=== PATIENT | female | born 1945 | race Caucasian/White ===

== ENCOUNTER 2023-07-11 12:02 | Emergency (ER) | payer MEDICARE, MEDICAID ==
[~2023-07-11] VITALS: Ht 170.2 cm; Wt 59.1 kg
[2023-07-11 12:05] VITALS: BP 124/74; PULSE 77; TEMP 97.3; O2SAT 96
[2023-07-11 12:41] VITALS: RESP 18
[2023-07-11 13:02] LABS: BASOPHILS % (AUTO) 0.5 % (0-1); EOSINOPHILS % (AUTO) 0.4 % (0-6); HEMOGLOBIN 15.4 g/dl (12.0-16.0); LYMPHOCYTES # (AUTO) 1.1 X10'3 (1.1-4.8); LYMPHOCYTES % (AUTO) 12.3 % (21-51); MEAN CORPUSCULAR HEMOGLOBIN 33.3 PG (27.0-31.0); MEAN CORPUSCULAR HGB CONC 33.6 g/dL (33.0-36.5); MEAN CORPUSCULAR VOLUME 99.1 FL (78-98); MEAN PLATELET VOLUME 7.8 FL (7.4-10.4); MONOCYTES # (AUTO) 0.5 X10'3 (0-0.9); MONOCYTES % (AUTO) 5.8 % (2-12); PLATELET COUNT 292 X10'3 (140-440); RED BLOOD COUNT 4.64 X10'6 (4.20-5.60); RED CELL DISTRIBUTION WIDTH 13.6 % (11.5-14.5); WHITE BLOOD COUNT 8.6 X10'3 (4.5-11.0)
[2023-07-11 13:10] LABS: ALANINE AMINOTRANSFERASE 35 U/L (12-78); ALBUMIN 3.4 G/DL (3.4-5.0); ALBUMIN/GLOBULIN RATIO 0.9 (1.1-1.5); ALKALINE PHOSPHATASE 68 IU/L (46-116); ANION GAP 9 (8-16); ASPARTATE AMINO TRANSFERASE 23 U/L (10-37); BILIRUBIN,TOTAL 0.4 MG/DL (0.1-1.0); BLOOD UREA NITROGEN 33 MG/DL (7-18); BUN/CREATININE RATIO 29.2 (10.0-20.0); CALCIUM 9.6 MG/DL (8.5-10.1); CHLORIDE 106 MMOL/L (99-107); CREATININE 1.13 MG/DL (0.40-0.90); GLUCOSE 111 MG/DL (70-104); POTASSIUM 4.4 MMOL/L (3.5-5.1); SODIUM 141 MMOL/L (135-145); TOTAL CARBON DIOXIDE 25.6 MMOL/L (24-32); TOTAL PROTEIN 7.2 G/DL (6.4-8.2); eCRCL 39 ML/MIN; eGFR 47 ML/MIN
[2023-07-11] MEDS ORDERED: acetaminophen 325mg tablet PO ONE ×2 (13:20→13:50)
[2023-07-11 13:21] LABS: MAGNESIUM 2.2 MG/DL (1.5-2.4); PRO BRAIN NATRIURETIC PEPTIDE 1799 PG/ML (0-450)
[2023-07-11] MEDS ORDERED: CefTRIAXone 2gm/D5W 50ml BAG 50 ML IV SCH (14:45)
[2023-07-11] MEDS ORDERED: ONDA4TAB12 PO (15:32)
[2023-07-11] MEDS ORDERED: SPIR25TA5 PO (15:32)
[2023-07-11] MEDS ORDERED: MIRA50TA PO (15:32)
[2023-07-11] MEDS ORDERED: LEVE500T PO (15:32)
[2023-07-11] MEDS ORDERED: LOSA100T58 PO (15:32)
[2023-07-11] MEDS ORDERED: FAMO20TA8 PO (15:32)
[2023-07-11] MEDS ORDERED: METF-436 (15:32)
[2023-07-11] MEDS ORDERED: METF-1203 PO (15:32)
[2023-07-11] MEDS ORDERED: SUCR1TAB PO (15:32)
[2023-07-11] MEDS ORDERED: ATOR-2 PO (15:32)
[2023-07-11] MEDS ORDERED: LABE200T8 PO (15:32)
[2023-07-11] MEDS ORDERED: TRAM50TA2 PO (15:32)
[2023-07-11] MEDS ORDERED: EZET10TA48 PO (15:32)
[2023-07-11] MEDS ORDERED: DOCU-391 PO (15:32)
[2023-07-11] MEDS ORDERED: NIFE90TA61 PO (15:32)
[2023-07-11] MEDS ORDERED: CLON1PAT15 TOP (15:32)
[2023-07-11] MEDS ORDERED: APIX5TAB3 PO (15:32)
[2023-07-11 15:33] LABS: BILIRUBIN,URINE NEGATIVE (Neg); CLARITY,URINE SLIGHTLY CLOUDY (Clear); COLOR,URINE YELLOW (Yellow); GLUCOSE, URINE NEGATIVE (Neg); KETONES,URINE NEGATIVE (Neg); LEUKOCYTE ESTERASE ,URINE NEGATIVE (Neg); NITRITES, URINE NEGATIVE (Neg); OCCULT BLOOD,URINE NEGATIVE (Neg); PH,URINE 5.5 (4.8-8.0); PROTEIN,URINE 100 mg/dl (Neg); UROBILINOGEN,URINE 0.2 E.U/dL (0.2-1.0)
[2023-07-11] MEDS ORDERED: METF-436 PO (15:34)
[2023-07-11 15:37] LABS: UA COLLECTION TYPE STRAIGHT CATH
[2023-07-11 15:41] LABS: MUCUS STRANDS FEW /LPF (Neg); SQUAMOUS EPITHELIAL CELL,UR FEW /LPF (FEW)
[2023-07-11 15:42] LABS: BACTERIA,URINE 4+ /HPF (Neg); RBC,URINE 0-2 /HPF (0-2); WBC,URINE 0-4 /HPF (0-4)
[2023-07-11] MEDS ORDERED: CefTRIAXone/D5W-Rocephin 1gm 50 ML IV ONE (15:55)
[2023-07-12] MEDS ORDERED: LIDO700A32 TOP (15:09)
[2023-07-12] MEDS ORDERED: CYCL-1 PO (15:09)
[2023-07-12] MEDS ORDERED: HYDR-3965 PO (15:09)
== END 2023-07-11 17:23 | disposition left against medical advice (07) ==
LOC: ER 12:03
DX: I11.0 Hypertensive heart disease with heart failure (principal); I50.9 Heart failure, unspecified; M54.50 Low back pain, unspecified; E87.20 Acidosis, unspecified; G89.29 Other chronic pain; E78.00 Pure hypercholesterolemia, unspecified; E11.9 Type 2 diabetes mellitus without complications; F17.200 Nicotine dependence, unspecified, uncomplicated; Z86.73 Personal history of transient ischemic attack (TIA), and cerebral infarction without residual deficits; Z79.899 Other long term (current) drug therapy; Z88.8 Allergy status to other drugs, medicaments and biological substances
CPT/HCPCS: 36415; 71045; 80053; 81001; 83605; 83735; 83880; 84145; 84484; 85025; 87040; 87088; 93005; 96365; 99285; J0696; C1758

== ENCOUNTER 2023-07-12 12:40 | Emergency (ER) | payer MEDICARE, MEDICAID ==
[~2023-07-12] VITALS: Ht 172.7 cm; Wt 63.6 kg
[~2023-07-12 12:40] MED LIST: APIX5TAB3 PO; ATOR-2 PO; CLON1PAT15 TOP; DOCU-391 PO; EZET10TA48 PO; FAMO20TA8 PO; LABE200T8 PO; LEVE500T PO; LOSA100T58 PO; METF-1203 PO; METF-436; METF-436 PO; MIRA50TA PO; NIFE90TA61 PO; ONDA4TAB12 PO; SPIR25TA5 PO; SUCR1TAB PO; TRAM50TA2 PO
[2023-07-12] MEDS ORDERED: dexamethasone sod phosphate 10mg/ml inj IM STA (13:03)
[2023-07-12] MEDS ORDERED: cyclobenzaprine 10mg tablet PO ONE (13:05)
[2023-07-12] MEDS ORDERED: HYDROcodone/acetaminophen 5mg/325mg tablet PO ONE (13:05)
[2023-07-12] MEDS ORDERED: LIDOcaine 5% patch TP SCH (13:05)
[2023-07-12] MEDS ORDERED: HYDR-3965 PO (15:09)
[2023-07-12] MEDS ORDERED: CYCL-1 PO (15:09)
[2023-07-12] MEDS ORDERED: LIDO700A32 TOP (15:09)
[2023-07-12 17:04] VITALS: BP 139/99; PULSE 87; RESP 16; TEMP 98.7; O2SAT 95
== END 2023-07-12 17:07 | disposition home or self-care (01) ==
LOC: ER 12:41
DX: M54.9 Dorsalgia, unspecified (principal); G89.29 Other chronic pain; E78.00 Pure hypercholesterolemia, unspecified; I10 Essential (primary) hypertension; E11.9 Type 2 diabetes mellitus without complications; Z86.73 Personal history of transient ischemic attack (TIA), and cerebral infarction without residual deficits; Z79.899 Other long term (current) drug therapy; Z99.3 Dependence on wheelchair
CPT/HCPCS: 72110; 96372; 99283; J1100